=== PATIENT | male | born 1945 | race Caucasian/White ===

== ENCOUNTER 2018-01-31 10:52 | Inpatient (IN) ==
[2018-01-31 12:28] LABS: Basophils # 0.1 10*3/uL (0.0-0.2); Basophils % 0.4 % (0.0-0.8); Eosinophils # 0.1 10*3/uL (0.0-0.87); Eosinophils % 0.5 % (0.00-10.9); Hemoglobin 13.9 GM/DL (14.0-18.0); Immature Granulocytes % 0.7 %; Immature Granulocytes Absolute 0.15 #; Lymphocytes # 2.2 10*3/uL (1.4-4.0); Lymphocytes % 10.6 % (21.2-54.2); Mean Corpuscular HGB Conc 31.6 GM/DL (32-36); Mean Corpuscular Hemoglobin 25 PG (27-34); Mean Corpuscular Volume 79.1 FL (87-102); Mean Platelet Volume 9.1 FL (9.6-12.0); Monocytes # 0.4 10*3/uL (0.11-0.8); Monocytes % 1.8 % (1.7-12.7); Neutrophils # 17.7 10*3/uL (1.4-7.4); Platelet Count 474 T/CUMM (130-400); Red Blood Count 5.56 MC/CUMM (3.8-5.5); White Blood Count 20.6 T/CUMM (4-12)
[2018-01-31] MEDS ORDERED: methylPREDNISolone SOD SUC 125 MG/2 ML VIAL IV STA (13:04)
[2018-01-31 13:11] LABS: Albumin 3.2 G/DL (3.4-5.0); Bilirubin,Total 0.5 MG/DL (0.2-1.0); Calcium 8.9 MG/DL (8.5-10.1); Osmolality,Calculated 269.5 MOS/KG (273-304); Potassium 3.9 MMOL/L (3.5-5.1); Total Protein 8.2 G/DL (6.4-8.3)
[2018-01-31 13:36] LABS: Lymphocytes 18 % (20-55); Platelet Estimate Adequate; Segmented Neutrophils 81 % (50-85); Total Cells Counted 100
[2018-01-31 14:44] LABS: ABG Base Excess 0.9 MMOL/L (-2.5-2.5); ABG HCO3 25.1 MMOL/L (20-26); ABG Oxygen Saturation 94.1 % (95-100); ABG PCO2 27.6 MM HG (35-48); ABG PH 7.519 (7.35-7.45); ABG PO2 68.6 MM HG (80-95); ABG TCO2 19.1 MMOL/L (23-27); Allen Test Positive; Pt O2 Delivery Device Room Air
[2018-01-31] MEDS ORDERED: ALBUTEROL 2.5 MG/3 ML NEB RESP TX PRN (18:10)
[2018-01-31] MEDS ORDERED: DOCUSATE SODIUM 100 MG CAPSULE PO PRN (18:10)
[2018-01-31] MEDS ORDERED: ONDANSETRON 4 MG/2 ML VIAL IV PRN (18:10)
[2018-01-31] MEDS ORDERED: ACETAMINOPHEN 325 MG TABLET PO PRN (18:10)
[2018-01-31] MEDS ORDERED: LACTULOSE 20 GM/30 ML UDCUP PO PRN (18:10)
[2018-01-31] MEDS: ENOXAPARIN 40 MG/0.4 ML SYRINGE SUBCUT SCH (21:54)
[2018-01-31] MEDS: AMANTADINE 100 MG CAPSULE PO SCH (21:54)
[2018-02-01 03:53] LABS: Basophils % 0.1 % (0.0-0.8); Hematocrit 42.2 VOL% (42.0-52.0); Hemoglobin 13.3 GM/DL (14.0-18.0); Immature Granulocytes % 0.8 %; Lymphocytes # 1.3 10*3/uL (1.4-4.0); Lymphocytes % 10.5 % (21.2-54.2); Mean Corpuscular HGB Conc 31.5 GM/DL (32-36); Mean Corpuscular Hemoglobin 25 PG (27-34); Mean Platelet Volume 9.7 FL (9.6-12.0); Monocytes # 0.2 10*3/uL (0.11-0.8); Monocytes % 1.3 % (1.7-12.7); Neutrophils # 10.9 10*3/uL (1.4-7.4); Neutrophils % 87.3 % (38.7-73.9); Platelet Count 454 T/CUMM (130-400); Red Blood Count 5.34 MC/CUMM (3.8-5.5); Red Cell Distribution Width 12.9 % (9.3-17.3); White Blood Count 12.4 T/CUMM (4-12)
[2018-02-01 04:23] LABS: Calcium 8.8 MG/DL (8.5-10.1); Osmolality,Calculated 274.2 MOS/KG (273-304); Potassium 4.7 MMOL/L (3.5-5.1)
[2018-02-01] MEDS: methylPREDNISolone SOD SUC 40 MG/1 ML VIAL IV SCH ×2 (06:13→21:55)
[2018-02-01] MEDS: THYROID 60 MG TABLET PO SCH (08:23)
[2018-02-01] MEDS: AMANTADINE 100 MG CAPSULE PO SCH ×2 (08:23→22:05)
[2018-02-01] MEDS: ASPIRIN EC 325 MG TABLET PO SCH (08:23)
[2018-02-01] MEDS ORDERED: LIOTHYRONINE SODIUM PO SCH (09:00)
[2018-02-01] MEDS ORDERED: PANTOPRAZOLE 40 MG TABLET PO SCH (09:00)
[2018-02-01] MEDS ORDERED: cefTRIAXone 1,000 MG in SYRINGE 1 EACH IV SCH (09:00)
[2018-02-01] MEDS ORDERED: SIMETHICONE CHEW 125 MG TABLET PO PRN (14:11)
[2018-02-01 16:43] LABS: Hepatitis A Ab IgM Quant 0.64 Index; Hepatitis A Ab IgM Result Negative (Negative); Hepatitis B Core IgM Quant < 0.05 Index; Hepatitis B Core IgM Result Negative (Negative); Hepatitis B Surface Ag Quant < 0.10 Index; Hepatitis B Surface Ag Result Negative (Negative); Hepatitis C Virus Ab Quant 0.12 Index; Hepatitis C Virus Ab Result Negative (Negative)
[2018-02-01] MEDS: PANTOPRAZOLE 40 MG TABLET PO SCH (22:05)
[2018-02-02 05:36] LABS: Basophils # 0.1 10*3/uL (0.0-0.2); Basophils % 0.2 % (0.0-0.8); Hematocrit 42.6 VOL% (42.0-52.0); Hemoglobin 13.4 GM/DL (14.0-18.0); Immature Granulocytes % 1.6 %; Immature Granulocytes Absolute 0.72 #; Lymphocytes # 1.1 10*3/uL (1.4-4.0); Lymphocytes % 2.5 % (21.2-54.2); Mean Corpuscular HGB Conc 31.5 GM/DL (32-36); Mean Corpuscular Hemoglobin 25 PG (27-34); Mean Corpuscular Volume 80.7 FL (87-102); Mean Platelet Volume 9.9 FL (9.6-12.0); Monocytes # 0.4 10*3/uL (0.11-0.8); Neutrophils # 42.3 10*3/uL (1.4-7.4); Neutrophils % 94.7 % (38.7-73.9); Platelet Count 468 T/CUMM (130-400); Red Blood Count 5.28 MC/CUMM (3.8-5.5); Red Cell Distribution Width 12.8 % (9.3-17.3)
[2018-02-02 05:40] LABS: White Blood Count 44.7 T/CUMM (4-12)
[2018-02-02 05:51] LABS: Calcium 8.8 MG/DL (8.5-10.1); Osmolality,Calculated 273.4 MOS/KG (273-304)
[2018-02-02 05:59] LABS: Band Neutrophils 6 % (0-10); Lymphocytes 7 % (20-55); Platelet Estimate Increased; Segmented Neutrophils 85 % (50-85); Total Cells Counted 100
[2018-02-02 06:00] LABS: Hypochromasia 2+
[2018-02-02] MEDS: THYROID 60 MG TABLET PO SCH (06:30)
[2018-02-02] MEDS ORDERED: MEROPENEM 1,000 MG in SODIUM CHLORIDE 0.9% 100 ML IV SCH (09:00)
[2018-02-02] MEDS: AMANTADINE 100 MG CAPSULE PO SCH ×2 (09:42→21:39)
[2018-02-02] MEDS: PANTOPRAZOLE 40 MG TABLET PO SCH ×2 (09:42→21:36)
[2018-02-02] MEDS: ASPIRIN EC 325 MG TABLET PO SCH (09:42)
[2018-02-02] MEDS: methylPREDNISolone SOD SUC 40 MG/1 ML VIAL IV SCH ×2 (09:42→21:36)
[2018-02-02 12:59] LABS: Apearance,Urine CLEAR (Clear); Bacteria,Urine Occasional /HPF (Few); Bilirubin,Urine Negative (Negative); Blood, Urine Negative (Negative); Glucose,Urine (UA) Negative (Negative); Ketones,Urine Negative (Negative); Mucus,Urine Occasional /LPF (Occasional); Nitrite,Urine Negative (Negative); Protein,Urine Negative; RBC,Urine 1 /HPF (0-4); Urine Color Yellow (Yellow); Urine Specific Gravity 1.018 (1.001-1.035); Urine Urobilinogen < 2.0 EU/DL (0.2-1.0); WBC,Urine 1 /HPF (0-6)
[2018-02-02] MEDS: cefTRIAXone 1,000 MG in SYRINGE 1 EACH IV SCH (15:15)
[2018-02-02] MEDS: POLYETHYLENE GLYCOL POWDER 17 GM PACK PO SCH (21:36)
[2018-02-03 06:05] LABS: Basophils % 0.1 % (0.0-0.8); Hematocrit 41.2 VOL% (42.0-52.0); Hemoglobin 12.8 GM/DL (14.0-18.0); Immature Granulocytes % 1.1 %; Immature Granulocytes Absolute 0.16 #; Lymphocytes # 1.6 10*3/uL (1.4-4.0); Lymphocytes % 10.5 % (21.2-54.2); Mean Corpuscular HGB Conc 31.1 GM/DL (32-36); Mean Corpuscular Hemoglobin 25 PG (27-34); Mean Corpuscular Volume 79.8 FL (87-102); Monocytes # 0.4 10*3/uL (0.11-0.8); Monocytes % 2.4 % (1.7-12.7); Neutrophils # 12.9 10*3/uL (1.4-7.4); Neutrophils % 85.9 % (38.7-73.9); Platelet Count 420 T/CUMM (130-400); Red Blood Count 5.16 MC/CUMM (3.8-5.5); Red Cell Distribution Width 12.7 % (9.3-17.3)
[2018-02-03] MEDS: THYROID 60 MG TABLET PO SCH (06:24)
[2018-02-03 06:34] LABS: Calcium 8.7 MG/DL (8.5-10.1); Osmolality,Calculated 272.5 MOS/KG (273-304); Potassium 4.6 MMOL/L (3.5-5.1)
[2018-02-03] MEDS: AMANTADINE 100 MG CAPSULE PO SCH ×2 (10:04→22:17)
[2018-02-03] MEDS: cefTRIAXone 1,000 MG in SYRINGE 1 EACH IV SCH (10:04)
[2018-02-03] MEDS: POLYETHYLENE GLYCOL POWDER 17 GM PACK PO SCH ×3 (10:04→22:18)
[2018-02-03] MEDS: ASPIRIN EC 325 MG TABLET PO SCH (10:04)
[2018-02-03] MEDS: PANTOPRAZOLE 40 MG TABLET PO SCH ×2 (10:04→22:17)
[2018-02-03] MEDS: methylPREDNISolone SOD SUC 40 MG/1 ML VIAL IV SCH ×2 (10:05→22:18)
[2018-02-03] MEDS: ENOXAPARIN 40 MG/0.4 ML SYRINGE SUBCUT SCH (22:18)
[2018-02-04] MEDS: THYROID 60 MG TABLET PO SCH (06:40)
[2018-02-04] MEDS: AMANTADINE 100 MG CAPSULE PO SCH ×2 (10:43→21:24)
[2018-02-04] MEDS: ASPIRIN EC 325 MG TABLET PO SCH (10:43)
[2018-02-04] MEDS: POLYETHYLENE GLYCOL POWDER 17 GM PACK PO SCH ×2 (10:44→21:23)
[2018-02-04] MEDS: cefTRIAXone 1,000 MG in SYRINGE 1 EACH IV SCH (10:44)
[2018-02-04] MEDS: PANTOPRAZOLE 40 MG TABLET PO SCH ×2 (10:44→21:26)
[2018-02-04] MEDS: methylPREDNISolone SOD SUC 40 MG/1 ML VIAL IV SCH ×2 (10:44→21:24)
[2018-02-04] MEDS: ENOXAPARIN 40 MG/0.4 ML SYRINGE SUBCUT SCH (21:24)
[2018-02-05 04:18] LABS: Basophils % 0.2 % (0.0-0.8); Hematocrit 43.1 VOL% (42.0-52.0); Hemoglobin 13.6 GM/DL (14.0-18.0); Immature Granulocytes % 2.8 %; Immature Granulocytes Absolute 0.46 #; Lymphocytes # 2.1 10*3/uL (1.4-4.0); Lymphocytes % 12.6 % (21.2-54.2); Mean Corpuscular HGB Conc 31.6 GM/DL (32-36); Mean Corpuscular Hemoglobin 25 PG (27-34); Mean Corpuscular Volume 79.4 FL (87-102); Mean Platelet Volume 9.8 FL (9.6-12.0); Monocytes # 0.5 10*3/uL (0.11-0.8); Monocytes % 3.2 % (1.7-12.7); Neutrophils # 13.3 10*3/uL (1.4-7.4); Neutrophils % 81.2 % (38.7-73.9); Platelet Count 448 T/CUMM (130-400); Red Blood Count 5.43 MC/CUMM (3.8-5.5); Red Cell Distribution Width 12.8 % (9.3-17.3); White Blood Count 16.3 T/CUMM (4-12)
[2018-02-05 04:37] LABS: Calcium 8.8 MG/DL (8.5-10.1)
[2018-02-05] MEDS: THYROID 60 MG TABLET PO SCH (06:43)
[2018-02-05] MEDS: cefTRIAXone 1,000 MG in SYRINGE 1 EACH IV SCH (10:00)
[2018-02-05] MEDS: ASPIRIN EC 325 MG TABLET PO SCH (10:01)
[2018-02-05] MEDS: POLYETHYLENE GLYCOL POWDER 17 GM PACK PO SCH ×2 (10:01→20:32)
[2018-02-05] MEDS: PANTOPRAZOLE 40 MG TABLET PO SCH ×2 (10:01→20:31)
[2018-02-05] MEDS: AMANTADINE 100 MG CAPSULE PO SCH ×2 (10:02→20:31)
[2018-02-05] MEDS: FUROSEMIDE 40 MG TABLET PO SCH (16:45)
[2018-02-05] MEDS: ENOXAPARIN 40 MG/0.4 ML SYRINGE SUBCUT SCH (20:32)
[2018-02-05] MEDS ORDERED: methylPREDNISolone SOD SUC 40 MG/1 ML VIAL IV SCH (21:00)
[2018-02-06] MEDS: THYROID 60 MG TABLET PO SCH (07:57)
[2018-02-06] MEDS: ASPIRIN EC 325 MG TABLET PO SCH (09:05)
[2018-02-06] MEDS: FUROSEMIDE 40 MG TABLET PO SCH (09:05)
[2018-02-06] MEDS: AMANTADINE 100 MG CAPSULE PO SCH (09:05)
[2018-02-06] MEDS: PANTOPRAZOLE 40 MG TABLET PO SCH (09:05)
[2018-02-06] MEDS: POLYETHYLENE GLYCOL POWDER 17 GM PACK PO SCH (09:05)
[2018-02-06] MEDS ORDERED: FLUCONAZOLE 100 MG TABLET PO SCH (15:30)
[2018-02-06 15:54] VITALS: BP 109/73
== END 2018-02-06 15:57 | disposition home or self-care (01) | DRG 202 ==
LOC: N.ED 10:52 → N.EDINP 14:18 → SUATTDRO 14:18 → N.2E 15:55
PROVIDERS: ADMIT Internal Medicine; ATTEND Hospitalist

== ENCOUNTER 2019-01-17 09:39 | Inpatient (IN) ==
[2019-01-17 10:36] LABS: Basophils # 0.1 10*3/uL (0.0-0.2); Basophils % 0.5 % (0.0-0.8); Eosinophils # 0.1 10*3/uL (0.0-0.87); Eosinophils % 0.2 % (0.00-10.9); Hemoglobin 14.6 GM/DL (14.0-18.0); Lymphocytes # 1.5 10*3/uL (1.4-4.0); Lymphocytes % 7.5 % (21.2-54.2); Mean Corpuscular HGB Conc 33.2 GM/DL (32-36); Mean Corpuscular Volume 82.2 FL (87-102); Monocytes % 2.4 % (1.7-12.7); Neutrophils % 88.4 % (38.7-73.9); Platelet Count 395 T/CUMM (130-400); Red Blood Count 5.35 MC/CUMM (3.8-5.5); White Blood Count 20.7 T/CUMM (4-12)
[2019-01-17 10:52] LABS: Albumin 3.3 G/DL (3.4-5.0); Bilirubin,Total 0.4 MG/DL (0.2-1.0); Calcium 8.7 MG/DL (8.5-10.1); Osmolality,Calculated 273.1 MOS/KG (273-304); Total Protein 7.1 G/DL (6.4-8.3)
[2019-01-17 11:17] LABS: Band Neutrophils 6 % (0-10); Eosinophils 1 % (0-10); Lymphocytes 5 % (20-55); Platelet Estimate Normal; Segmented Neutrophils 88 % (50-85); Total Cells Counted 100
[2019-01-17 11:18] LABS: Anisocytosis 1+
[2019-01-17] MEDS ORDERED: ONDANSETRON 4 MG/2 ML VIAL IV PRN (11:47)
[2019-01-17] MEDS ORDERED: ACETAMINOPHEN 325 MG TABLET PO PRN (11:47)
[2019-01-17 12:40] LABS: Apearance,Urine CLEAR (Clear); Bilirubin,Urine Negative (Negative); Blood, Urine Negative (Negative); Glucose,Urine (UA) Negative (Negative); Hyaline Casts,Urine 1 /LPF (0-3); Ketones,Urine 5 mg/dL (Negative); Mucus,Urine Occasional /LPF (Occasional); Nitrite,Urine Negative (Negative); Protein,Urine Negative; RBC,Urine 3 /HPF (0-4); Squamous Epithelial Cell,Urine Occasional /HPF (0-10); Urine Color Yellow (Yellow); Urine Urobilinogen < 2.0 EU/DL (0.2-1.0); WBC,Urine <1 /HPF (0-6)
[2019-01-17] MEDS: cefTRIAXone 1,000 MG in SYRINGE 1 EACH IV SCH (16:27)
[2019-01-17] MEDS: AZITHROMYCIN INJ 500 MG in SODIUM CHLORIDE 0.9% 250 ML IV SCH (16:28)
[2019-01-17] MEDS: PANTOPRAZOLE 40 MG TABLET PO SCH ×2 (20:38→21:55)
[2019-01-17] MEDS: ALBUTEROL/IPRATROPIUM 3 ML NEB RESP TX SCH (21:18)
[2019-01-17] MEDS: AMANTADINE 100 MG CAPSULE PO SCH (22:10)
[2019-01-18] MEDS: ALBUTEROL/IPRATROPIUM 3 ML NEB RESP TX SCH ×4 (01:55→19:01)
[2019-01-18 04:54] LABS: Basophils # 0.1 10*3/uL (0.0-0.2); Basophils % 0.3 % (0.0-0.8); Eosinophils # 0.1 10*3/uL (0.0-0.87); Eosinophils % 0.3 % (0.00-10.9); Hematocrit 39.6 VOL% (42.0-52.0); Hemoglobin 12.9 GM/DL (14.0-18.0); Immature Granulocytes % 0.9 %; Immature Granulocytes Absolute 0.19 #; Lymphocytes # 1.7 10*3/uL (1.4-4.0); Lymphocytes % 8.3 % (21.2-54.2); Mean Corpuscular HGB Conc 32.6 GM/DL (32-36); Mean Corpuscular Volume 82.5 FL (87-102); Mean Platelet Volume 9.2 FL (9.6-12.0); Monocytes % 1.6 % (1.7-12.7); Neutrophils % 88.6 % (38.7-73.9); Platelet Count 368 T/CUMM (130-400); White Blood Count 20.9 T/CUMM (4-12)
[2019-01-18 05:29] LABS: Calcium 8.5 MG/DL (8.5-10.1); Risk Ratio 4.22; Thyroid Stimulating Hormone 1.66 uIU/ml (0.358-3.74)
[2019-01-18 05:53] LABS: Band Neutrophils 1 % (0-10); Eosinophils 1 % (0-10); Lymphocytes 7 % (20-55); Platelet Estimate Adequate; Segmented Neutrophils 91 % (50-85); Total Cells Counted 100
[2019-01-18] MEDS ORDERED: PANTOPRAZOLE 40 MG TABLET PO SCH (09:00)
[2019-01-18] MEDS ORDERED: THYROID 60 MG TABLET PO SCH (09:00)
[2019-01-18] MEDS: AZITHROMYCIN INJ 500 MG in SODIUM CHLORIDE 0.9% 250 ML IV SCH (09:34)
[2019-01-18] MEDS: cefTRIAXone 1,000 MG in SYRINGE 1 EACH IV SCH (09:35)
[2019-01-18] MEDS: POTASSIUM CHLORIDE 20 MEQ TABLET PO SCH (09:39)
[2019-01-18] MEDS: AMANTADINE 100 MG CAPSULE PO SCH ×2 (09:39→21:18)
[2019-01-18] MEDS: predniSONE 10 MG TABLET PO SCH (09:40)
[2019-01-18] MEDS: PANTOPRAZOLE 40 MG TABLET PO SCH ×2 (09:40→21:18)
[2019-01-18] MEDS: FUROSEMIDE 40 MG TABLET PO SCH (09:40)
[2019-01-18] MEDS: ENOXAPARIN 40 MG/0.4 ML SYRINGE SUBCUT SCH (09:41)
[2019-01-18] MEDS: LIOTHYRONINE PO SCH (09:41)
[2019-01-19] MEDS: ALBUTEROL/IPRATROPIUM 3 ML NEB RESP TX SCH ×2 (00:10→07:28)
[2019-01-19 04:55] LABS: Basophils # 0.1 10*3/uL (0.0-0.2); Basophils % 0.4 % (0.0-0.8); Eosinophils # 0.2 10*3/uL (0.0-0.87); Eosinophils % 1.3 % (0.00-10.9); Hematocrit 41.1 VOL% (42.0-52.0); Hemoglobin 13.1 GM/DL (14.0-18.0); Immature Granulocytes % 1.1 %; Immature Granulocytes Absolute 0.15 #; Lymphocytes # 2.3 10*3/uL (1.4-4.0); Lymphocytes % 16.7 % (21.2-54.2); Mean Corpuscular HGB Conc 31.9 GM/DL (32-36); Mean Corpuscular Volume 83.5 FL (87-102); Mean Platelet Volume 9.4 FL (9.6-12.0); Monocytes % 3.2 % (1.7-12.7); Neutrophils % 77.3 % (38.7-73.9); Platelet Count 375 T/CUMM (130-400); Red Blood Count 4.92 MC/CUMM (3.8-5.5)
[2019-01-19 05:23] LABS: Calcium 8.6 MG/DL (8.5-10.1); Osmolality,Calculated 278.7 MOS/KG (273-304)
[2019-01-19] MEDS ORDERED: THYROID 60 MG TABLET PO SCH (06:30)
[2019-01-19 07:58] VITALS: BP 110/66
[2019-01-19] MEDS ORDERED: AZITHROMYCIN 250 MG TABLET PO SCH (09:00)
[2019-01-19] MEDS: AMANTADINE 100 MG CAPSULE PO SCH (09:35)
[2019-01-19] MEDS: PANTOPRAZOLE 40 MG TABLET PO SCH (09:36)
[2019-01-19] MEDS: predniSONE 10 MG TABLET PO SCH (09:36)
[2019-01-19] MEDS: POTASSIUM CHLORIDE 20 MEQ TABLET PO SCH (09:36)
[2019-01-19] MEDS: ENOXAPARIN 40 MG/0.4 ML SYRINGE SUBCUT SCH (09:36)
[2019-01-19] MEDS: FUROSEMIDE 40 MG TABLET PO SCH (09:36)
[2019-01-19] MEDS: cefTRIAXone 1,000 MG in SYRINGE 1 EACH IV SCH (09:36)
[2019-01-19] MEDS: LIOTHYRONINE PO SCH (09:45)
== END 2019-01-19 11:20 | disposition home or self-care (01) | DRG 194 ==
LOC: N.ED 09:39 → N.EDINP 11:43 → N.2E 12:56
PROVIDERS: ADMIT Internal Medicine; ATTEND Internal Medicine

== ENCOUNTER 2022-04-29 06:04 | Inpatient (IN) ==
[~2022-04-29 06:04] MED LIST: ERTAPENEM 1,000 MG in SODIUM CHLORIDE 0.9% 100 ML IV ONE; LACTATED RINGERS 1,000 ML IV SCH
[2022-04-29] MEDS ORDERED: FAMOTIDINE 20 MG TABLET ONE (06:48)
[2022-04-29] MEDS ORDERED: GABAPENTIN 400 MG CAPSULE ONE (06:48)
[2022-04-29] MEDS ORDERED: ACETAMINOPHEN 500 MG TABLET ONE (06:48)
[2022-04-29] MEDS ORDERED: propofoL 200 MG/20 ML VIAL IV ONE (06:58)
[2022-04-29] MEDS ORDERED: LIDOCAINE 2% 5 ML VIAL ONE (06:58)
[2022-04-29] MEDS ORDERED: SUCCINYLCHOLINE 200 MG/10 ML VIAL ONE (06:58)
[2022-04-29] MEDS ORDERED: DEXAMETHASONE 4 MG/1 ML VIAL ONE (06:58)
[2022-04-29] MEDS ORDERED: ONDANSETRON 4 MG/2 ML VIAL ONE (06:58)
[2022-04-29] MEDS ORDERED: ROCURONIUM 50 MG/5 ML VIAL IV ONE (06:58)
[2022-04-29] MEDS ORDERED: KETAMINE 500 MG/10 ML VIAL ONE (06:59)
[2022-04-29] MEDS ORDERED: BUPIVACAINE 0.5% 50 ML VIAL ONE (07:06)
[2022-04-29] MEDS ORDERED: METOCLOPRAMIDE 10 MG/2 ML VIAL ONE (07:56)
[2022-04-29] MEDS ORDERED: ALBUMIN 5% 25.0 GM/500 ML VIAL IV ONE (07:58)
[2022-04-29] MEDS ORDERED: ePHEDrine 50 MG/ML VIAL ONE (08:23)
[2022-04-29] MEDS ORDERED: SEVOFLURANE 1 UNIT/15 MINUTE INH ONE (09:34)
[2022-04-29] MEDS ORDERED: SODIUM CHLORIDE 0.9% 1,000 ML IV ONE (09:41)
[2022-04-29] MEDS ORDERED: SUGAMMADEX 200 MG/2 ML VIAL IV ONE (09:42)
[2022-04-29 10:20] LABS: Bacteria,Urine Occasional /HPF (Few); Bilirubin,Urine Negative (Negative); Blood, Urine Negative (Negative); Glucose,Urine (UA) Negative (Negative); Ketones,Urine Negative (Negative); Mucus,Urine Occasional /LPF (Occasional); Nitrite,Urine Negative (Negative); Protein,Urine Negative (Negative); RBC,Urine 2 /HPF (0-4); Urine Appearance Clear (Clear); Urine Color Yellow (Yellow); Urine Specific Gravity 1.025 (1.001-1.035); Urine Urobilinogen 0.2 eU/dL (<2.0); Urine pH 5.5 (4.5-8.0)
[2022-04-29] MEDS ORDERED: HYDROmorphone 1 MG/1 ML SYRINGE IV PRN (11:24)
[2022-04-29] MEDS ORDERED: KETOROLAC 15 MG/1 ML VIAL IV PRN (11:24)
[2022-04-29] MEDS ORDERED: ONDANSETRON 4 MG/2 ML VIAL IV PRN (11:24)
[2022-04-29] MEDS ORDERED: ACETAMINOPHEN 325 MG TABLET PO PRN (11:24)
[2022-04-29] MEDS ORDERED: ALBUTEROL/IPRATROPIUM 3 ML NEB RESP TX PRN (11:24)
[2022-04-29] MEDS: LACTATED RINGERS 1,000 ML IV SCH (14:35)
[2022-04-29] MEDS: HYDROmorphone 1 MG/1 ML SYRINGE IV PRN ×2 (15:06→20:13)
[2022-04-29] MEDS: ALVIMOPAN 12 MG CAPSULE PO SCH (20:12)
[2022-04-30] MEDS: LACTATED RINGERS 1,000 ML IV SCH ×4 (00:22→18:37)
[2022-04-30] MEDS: HYDROmorphone 1 MG/1 ML SYRINGE IV PRN (04:42)
[2022-04-30 05:49] LABS: Osmolality,Calculated 280.5 MOS/KG (273-304); Potassium 4.3 MMOL/L (3.5-5.1)
[2022-04-30 06:21] LABS: Basophils % 0.1 % (0.0-0.8); Hematocrit 24.6 VOL% (42.0-52.0); Immature Granulocytes % 0.6 %; Immature Granulocytes Absolute 0.09 #; Lymphocytes # 1.3 10*3/uL (1.4-4.0); Lymphocytes % 8.2 % (21.2-54.2); Mean Corpuscular HGB Conc 30.1 GM/DL (32-36); Mean Corpuscular Volume 73.9 FL (87-102); Monocytes # 1.5 10*3/uL (0.11-0.8); Monocytes % 9.6 % (1.7-12.7); Neutrophils % 81.5 % (38.7-73.9); Platelet Count 255 T/CUMM (130-400); Red Blood Count 3.33 MC/CUMM (3.8-5.5); Red Cell Distribution Width 14.6 % (9.3-17.3); White Blood Count 15.5 T/CUMM (4-12)
[2022-04-30 06:22] LABS: Hemoglobin 7.4 GM/DL (14.0-18.0)
[2022-04-30] MEDS ORDERED: ENOXAPARIN 40 MG/0.4 ML SYRINGE SUBCUT SCH (09:00)
[2022-04-30] MEDS: METOPROLOL SUCCINATE XL 25 MG TABLET PO SCH (09:05)
[2022-04-30] MEDS: PANTOPRAZOLE 40 MG VIAL IV SCH (09:08)
[2022-04-30] MEDS: ALVIMOPAN 12 MG CAPSULE PO SCH ×2 (09:09→20:45)
[2022-04-30] MEDS ORDERED: SODIUM CHLORIDE 0.9% 1,000 ML IV PRN (09:47)
[2022-04-30 19:53] LABS: Hematocrit 30.3 VOL% (42.0-52.0); Hemoglobin 9.3 GM/DL (14.0-18.0)
[2022-05-01] MEDS: LACTATED RINGERS 1,000 ML IV SCH ×3 (03:36→21:08)
[2022-05-01 04:50] LABS: Basophils # 0.1 10*3/uL (0.0-0.2); Basophils % 0.5 % (0.0-0.8); Eosinophils # 0.1 10*3/uL (0.0-0.87); Eosinophils % 0.6 % (0.00-10.9); Hematocrit 29.7 VOL% (42.0-52.0); Immature Granulocytes % 0.4 %; Immature Granulocytes Absolute 0.04 #; Lymphocytes # 1.6 10*3/uL (1.4-4.0); Lymphocytes % 14.5 % (21.2-54.2); Mean Corpuscular HGB Conc 30.3 GM/DL (32-36); Mean Corpuscular Volume 75.2 FL (87-102); Mean Platelet Volume 10.4 FL (9.6-12.0); Monocytes % 9.5 % (1.7-12.7); Neutrophils % 74.5 % (38.7-73.9); Platelet Count 252 T/CUMM (130-400); Red Blood Count 3.95 MC/CUMM (3.8-5.5); White Blood Count 10.7 T/CUMM (4-12)
[2022-05-01 05:01] LABS: Calcium 8.5 MG/DL (8.5-10.1); Osmolality,Calculated 280.4 MOS/KG (273-304); Potassium 3.5 MMOL/L (3.5-5.1)
[2022-05-01] MEDS: ALVIMOPAN 12 MG CAPSULE PO SCH ×2 (08:47→21:07)
[2022-05-01] MEDS: METOPROLOL SUCCINATE XL 25 MG TABLET PO SCH (08:47)
[2022-05-01] MEDS: PANTOPRAZOLE 40 MG VIAL IV SCH (08:47)
[2022-05-01] MEDS: HYDROmorphone 1 MG/1 ML SYRINGE IV PRN (16:28)
[2022-05-02] MEDS: LACTATED RINGERS 1,000 ML IV SCH ×2 (04:07→09:55)
[2022-05-02 06:42] LABS: Basophils % 0.4 % (0.0-0.8); Eosinophils # 0.1 10*3/uL (0.0-0.87); Eosinophils % 1.4 % (0.00-10.9); Hematocrit 33.7 VOL% (42.0-52.0); Hemoglobin 10.5 GM/DL (14.0-18.0); Immature Granulocytes % 0.6 %; Immature Granulocytes Absolute 0.06 #; Lymphocytes # 1.7 10*3/uL (1.4-4.0); Lymphocytes % 16.9 % (21.2-54.2); Mean Corpuscular HGB Conc 31.2 GM/DL (32-36); Mean Corpuscular Volume 75.4 FL (87-102); Monocytes # 0.7 10*3/uL (0.11-0.8); Monocytes % 7.3 % (1.7-12.7); Neutrophils % 73.4 % (38.7-73.9); Platelet Count 257 T/CUMM (130-400); Red Blood Count 4.47 MC/CUMM (3.8-5.5); Red Cell Distribution Width 15.7 % (9.3-17.3); White Blood Count 9.8 T/CUMM (4-12)
[2022-05-02] MEDS: PANTOPRAZOLE 40 MG VIAL IV SCH (08:12)
[2022-05-02] MEDS: ALVIMOPAN 12 MG CAPSULE PO SCH ×2 (08:12→20:46)
[2022-05-02] MEDS: METOPROLOL SUCCINATE XL 25 MG TABLET PO SCH (08:12)
[2022-05-03] MEDS: LACTATED RINGERS 1,000 ML IV SCH (00:42)
[2022-05-03] MEDS: PANTOPRAZOLE 40 MG VIAL IV SCH (08:34)
[2022-05-03] MEDS: ALVIMOPAN 12 MG CAPSULE PO SCH ×2 (08:34→21:40)
[2022-05-03] MEDS: METOPROLOL SUCCINATE XL 25 MG TABLET PO SCH (08:34)
[2022-05-04] MEDS: PANTOPRAZOLE 40 MG VIAL IV SCH (08:52)
[2022-05-04] MEDS: METOPROLOL SUCCINATE XL 25 MG TABLET PO SCH (08:53)
[2022-05-04] MEDS: ALVIMOPAN 12 MG CAPSULE PO SCH (08:53)
[2022-05-04 12:07] VITALS: BP 133/73
== END 2022-05-04 12:53 | disposition home or self-care (01) | DRG 330 ==
LOC: N.SDSINP 06:04 → N.3E 13:02
PROVIDERS: ADMIT Surgery; ATTEND Surgery